=== PATIENT | female | born 1990 | race Caucasian/White ===

== ENCOUNTER 2023-01-22 05:26 | Day surgery (SDC) | payer OTHER ==
[~2023-01-22 05:26] MED LIST: DIFLUCAN PO; KEFLEX500 MG PO
== END 2023-01-22 21:00 | disposition home or self-care (01) ==
LOC: CIR.AMB 05:26 → U 05:26 → CIR.AMB 08:45
PROVIDERS: ATTEND Specialist
DX: T19.3XXA Foreign body in uterus, initial encounter (principal); N93.8 Other specified abnormal uterine and vaginal bleeding; Z20.822 Contact with and (suspected) exposure to COVID-19